=== PATIENT | female | born 1980 | race Caucasian/White ===

== ENCOUNTER → 2020-03-28 | Outpatient (CLI) | payer BC, OTHER ==
[~2020-03-28] MED LIST: BENTYL 20MG TAB20 MG PO; LODINE CAP 300300 MG PO; ZOFRAN ODT 4 MG4 MG PO
== END ==
LOC: KOH-I 15:04
DX: M25.552 Pain in left hip (principal)
CPT/HCPCS: 73502

== ENCOUNTER → 2020-12-27 | Outpatient (CLI) | payer BC | LOC: KOH-I 14:30 | DX: E04.9 Nontoxic goiter, unspecified (principal) | CPT/HCPCS: 76536 ==

== ENCOUNTER 2021-10-30 21:14 | Emergency (ER) | payer BC ==
[2021-10-30 22:08] LABS: HEMOGLOBIN 13.5 gm/dl (12.3-15.3); RED BLOOD COUNT 4.38 M/UL (4.00-5.10); WHITE BLOOD COUNT 13.3 K/UL (4.5-11.0)
[2021-10-30 22:32] LABS: BUN/CREATININE RATIO 22 (0-10)
== END 2021-10-31 00:45 | disposition home or self-care (01) ==
LOC: ER1 21:14
PROVIDERS: Emergency Medicine
DX: R56.9 Unspecified convulsions (principal); Z88.1 Allergy status to other antibiotic agents; Z88.0 Allergy status to penicillin; Z20.822 Contact with and (suspected) exposure to COVID-19
CPT/HCPCS: 70450; 71045; 80053; 81001; 84439; 84443; 84484; 84703; 85025; 93005; 96374; 99285; J2405; U0002

== ENCOUNTER → 2021-11-10 | Outpatient (CLI) | payer BC | LOC: EMI 09:01 | DX: R56.9 Unspecified convulsions (principal) | CPT/HCPCS: 70553; A9577 ==